=== PATIENT | female | born 1975 | race Caucasian/White ===

== ENCOUNTER 2018-05-15 15:18 | Emergency (ER) | payer OTHER ==
[~2018-05-15] VITALS: Ht 154.9 cm; Wt 91.2 kg
[2018-05-15 15:53] VITALS: Ht 154.9 cm; Wt 91.2 kg
[2018-05-15 18:28] LABS: BASOPHIL % 2.1 % (0-2); PLATELET COUNT 313 x10^3mcL (130-400); RED CELL DISTRIBUTION WIDTH 12.9 % (11.5-14.5)
[2018-05-15 19:56] VITALS: BP 148/94
== END 2018-05-15 19:56 | disposition home or self-care (01) ==
LOC: ED 15:18
PROVIDERS: Emergency Medicine Emergency Medical Services
DX: R10.31 Right lower quadrant pain (principal); Z88.5 Allergy status to narcotic agent
CPT/HCPCS: 36415